=== PATIENT | male | born 2000 | race Caucasian/White ===

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

== ENCOUNTER 2023-05-18 20:07 | Inpatient (IN) | payer OTHER ==
[2023-05-18] MEDS ORDERED: VANCOMYCIN/WATER 1,250 MG/250 ML BAG (RESTRICTED TO ID ONLY) IVPB ONE (22:31)
[2023-05-18] MEDS ORDERED: KETOROLAC TROMETHAMINE 30 MG/1 ML VIAL IVPUSH ONE (22:34)
[2023-05-18] MEDS ORDERED: VANCOMYCIN/WATER 1250 MG 1,250 MG/250 ML BAG IVPB ONE (22:57)
[2023-05-18] MEDS ORDERED: KETOROLAC TROMETHAMINE 30 MG/1 ML VIAL ONE (22:57)
[2023-05-18 23:09] LABS: BASO % 0.2 % (0-2.0); EOS % 0.3 % (0-4.5); HEMATOCRIT 42.7 % (35.4-49); HEMOGLOBIN 14.2 GM/dL (11.7-16.9); LYMPH % 8.5 % (8-40); MCH 27.3 pg (25.7-33.7); MCHC 33.2 g/dl (32.0-35.9); MEAN CELL VOLUME 82.4 fl (80-96); MEAN PLT VOLUME 9.4 fl (7.5-11.1); MONO % 4.9 % (3.8-10.2); NEUT % 86.1 % (42.8-82.8); PLATELET COUNT 225 10^3/uL (134-434); RBC 5.18 M/mm3 (4.00-5.60); RDW 13.8 % (11.9-15.9); WHITE BLOOD COUNT 10.3 K/mm3 (4.0-10.0)
[2023-05-18 23:23] LABS: BLOOD UREA NITROGEN 17.5 mg/dL (7-18); CALCIUM 9.7 mg/dL (8.5-10.1)
[2023-05-18 23:24] LABS: ALBUMIN 4.6 g/dl (3.4-5.0)
[2023-05-18 23:27] LABS: CREATININE 0.9 mg/dL (0.55-1.3)
[2023-05-18 23:28] LABS: BILIRUBIN,TOTAL 0.9 mg/dL (0.2-1); TOT PROT 7.7 g/dl (6.4-8.2)
[2023-05-18 23:40] LABS: ERYTHROCYTE SEDIMENTATION RATE 7 mm/hr (0-10)
[2023-05-19] MEDS ORDERED: DEXAMETHASONE SOD PHOSPHATE 10 MG/1 ML VIAL IVPUSH ONE (00:15)
[2023-05-19] MEDS ORDERED: DEXAMETHASONE SOD PHOSPHATE 10 MG/1 ML VIAL ONE (00:24)
[2023-05-19] MEDS ORDERED: DIPHTH,PERTUSS(ACELL),TET 0.5 ML DISP.SYRIN IM ONE (00:47)
[2023-05-19] MEDS ORDERED: PIPERACILLIN/TAZOB 4.5 GM 4.5 GM in DEXTROSE 5%-WATER 100 ML IVPB ONE (06:33)
[2023-05-19] MEDS ORDERED: PIPERACILLIN/TAZOB 4.5 GM 4.5 GM/100 ML BAG IVPB ONE (06:44)
[2023-05-19] MEDS ORDERED: ACETAMINOPHEN 325 MG TABLET (FP) PO PRN (08:01)
[2023-05-19] MEDS ORDERED: KETOROLAC TROMETHAMINE 15 MG/ML VIAL IVPUSH PRN (08:02)
[2023-05-19] MEDS: ENOXAPARIN NA (PORCINE) 40 MG/0.4 ML DISP.SYRIN SQ SCH (10:30)
[2023-05-19] MEDS ORDERED: AMPICILLIN NA/SULBACTAM NA 3 GM in SODIUM CHLORIDE 100 ML IVPB SCH (11:00)
[2023-05-19] MEDS ORDERED: ACETAMINOPHEN 500 MG TABLET (FP) PO ONE (14:44)
[2023-05-19] MEDS ORDERED: ACETAMINOPHEN 325 MG TABLET (FP) ONE (14:50)
[2023-05-19] MEDS ORDERED: ALBUTEROL SO4 2.5/IPRATROPIUM 0.5 INH SOL 3 ML VIAL.NEB. NEB PRN (17:28)
[2023-05-19 19:00] VITALS: BMI 26.4
[2023-05-19] MEDS: PIPERACILLIN/TAZOB 3.375 GM 3.375 GM in DEXTROSE 5%-WATER - 50 ML IVPB SCH (19:49)
[2023-05-20] MEDS: PIPERACILLIN/TAZOB 3.375 GM 3.375 GM in DEXTROSE 5%-WATER - 50 ML IVPB SCH ×3 (02:05→18:40)
[2023-05-20 10:57] LABS: HEMATOCRIT 41.7 % (35.4-49); HEMOGLOBIN 13.4 GM/dL (11.7-16.9); MCH 27.3 pg (25.7-33.7); MEAN CELL VOLUME 85.3 fl (80-96); MEAN PLT VOLUME 10.4 fl (7.5-11.1); PLATELET COUNT 222 10^3/uL (134-434); RDW 13.9 % (11.9-15.9); WHITE BLOOD COUNT 6.9 K/mm3 (4.0-10.0)
[2023-05-20] MEDS: ACETAMINOPHEN 325 MG TABLET (FP) PO SCH ×2 (11:08→18:39)
[2023-05-20] MEDS: ENOXAPARIN NA (PORCINE) 40 MG/0.4 ML DISP.SYRIN SQ SCH (11:09)
[2023-05-20 11:15] LABS: POTASSIUM 3.9 mmol/L (3.5-5.1)
[2023-05-20 11:22] LABS: ALBUMIN 3.8 g/dl (3.4-5.0); CALCIUM 9.8 mg/dL (8.5-10.1)
[2023-05-20 11:23] LABS: MAGNESIUM 2.4 mg/dL (1.8-2.4)
[2023-05-20 11:25] LABS: PHOSPHOROUS 3.7 mg/dL (2.5-4.9)
[2023-05-20 11:27] LABS: BILIRUBIN,TOTAL 0.5 mg/dL (0.2-1); TOT PROT 6.7 g/dl (6.4-8.2)
[2023-05-20] MEDS: BACITRACIN ZINC 15 GM TUBE TOPICAL OINTMENT TP SCH ×2 (12:30→22:12)
[2023-05-20] MEDS: POVIDONE-IODINE 10% SOLN 118 ML BOTTLE TP SCH (15:38)
[2023-05-21] MEDS: ACETAMINOPHEN 325 MG TABLET (FP) PO SCH ×3 (01:52→11:32)
[2023-05-21] MEDS: POVIDONE-IODINE 10% SOLN 118 ML BOTTLE TP SCH ×4 (02:34→22:16)
[2023-05-21] MEDS: PIPERACILLIN/TAZOB 3.375 GM 3.375 GM in DEXTROSE 5%-WATER - 50 ML IVPB SCH ×2 (02:35→10:06)
[2023-05-21 09:31] LABS: BASO % 0.6 % (0-2.0); EOS % 1.2 % (0-4.5); HEMATOCRIT 40.1 % (35.4-49); LYMPH % 26.8 % (8-40); MCH 27.5 pg (25.7-33.7); MCHC 32.4 g/dl (32.0-35.9); MEAN PLT VOLUME 10.7 fl (7.5-11.1); MONO % 11.3 % (3.8-10.2); NEUT % 60.1 % (42.8-82.8); PLATELET COUNT 198 10^3/uL (134-434); RBC 4.71 M/mm3 (4.00-5.60); RDW 13.9 % (11.9-15.9); WHITE BLOOD COUNT 6.3 K/mm3 (4.0-10.0)
[2023-05-21] MEDS: ENOXAPARIN NA (PORCINE) 40 MG/0.4 ML DISP.SYRIN SQ SCH (10:05)
[2023-05-21] MEDS: BACITRACIN ZINC 15 GM TUBE TOPICAL OINTMENT TP SCH ×2 (10:06→22:16)
[2023-05-21 10:22] LABS: CALCIUM 9.3 mg/dL (8.5-10.1)
[2023-05-21 10:23] LABS: ALBUMIN 3.8 g/dl (3.4-5.0); BLOOD UREA NITROGEN 19.8 mg/dL (7-18); MAGNESIUM 2.3 mg/dL (1.8-2.4)
[2023-05-21 10:27] LABS: BILIRUBIN,TOTAL 0.3 mg/dL (0.2-1)
[2023-05-21 10:28] LABS: TOT PROT 6.4 g/dl (6.4-8.2)
[2023-05-21] MEDS ORDERED: KETOROLAC TROMETHAMINE 15 MG/ML VIAL IVPUSH PRN (13:38)
[2023-05-21] MEDS ORDERED: ACETAMINOPHEN 325 MG TABLET (FP) PO PRN (13:38)
[2023-05-21] MEDS ORDERED: AMPICILLIN NA/SULBACTAM NA 3 GM in SODIUM CHLORIDE 100 ML IVPB SCH (15:00)
[2023-05-21] MEDS: AMPICILLIN NA/SULBACTAM NA 3 GM in SODIUM CHLORIDE 100 ML IVPB SCH (21:25)
[2023-05-22] MEDS: AMPICILLIN NA/SULBACTAM NA 3 GM in SODIUM CHLORIDE 100 ML IVPB SCH ×2 (02:05→09:47)
[2023-05-22 04:43] VITALS: PULSE 56
[2023-05-22] MEDS: POVIDONE-IODINE 10% SOLN 118 ML BOTTLE TP SCH (06:35)
[2023-05-22 08:36] LABS: HEMATOCRIT 37.2 % (35.4-49); HEMOGLOBIN 12.5 GM/dL (11.7-16.9); MCHC 33.6 g/dl (32.0-35.9); MEAN CELL VOLUME 83.5 fl (80-96); MEAN PLT VOLUME 9.7 fl (7.5-11.1); PLATELET COUNT 184 10^3/uL (134-434); RBC 4.46 M/mm3 (4.00-5.60); RDW 13.5 % (11.9-15.9); WHITE BLOOD COUNT 5.9 K/mm3 (4.0-10.0)
[2023-05-22 09:04] VITALS: BP 102/60; RESP 18; TEMP 98.3
[2023-05-22] MEDS: BACITRACIN ZINC 15 GM TUBE TOPICAL OINTMENT TP SCH (09:48)
[2023-05-22] MEDS: ENOXAPARIN NA (PORCINE) 40 MG/0.4 ML DISP.SYRIN SQ SCH (09:49)
== END 2023-05-22 13:52 | disposition home or self-care (01) | DRG 384 ==
LOC: JER 20:07 → JERBED 05-19 01:18 → OBSVTOIN 05-19 04:44 → J5S 05-19 17:24
PROVIDERS: ADMIT Internal Medicine
DX: S61.451A Open bite of right hand, initial encounter (principal); L08.9 Local infection of the skin and subcutaneous tissue, unspecified; J45.909 Unspecified asthma, uncomplicated; M65.88 Other synovitis and tenosynovitis, other site; Y92.098 Other place in other non-institutional residence as the place of occurrence of the external cause; W54.0XXA Bitten by dog, initial encounter; S60.511A Abrasion of right hand, initial encounter
CPT/HCPCS: 36415; 73130-TC-RT-FY; 80053; 83605; 83735; 84100; 85025; 85027; 85651; 86140; 87040; 90715; 99285-25; G0378; J1100